=== PATIENT | male | born 1990 | race Caucasian/White ===

== ENCOUNTER 2022-06-07 10:27 | Emergency (ER) | payer BC, SELFPAY ==
--- NOTE | ~2022-06-07 | XR_ITS ---
EXAMINATION: XR SHOULDER, LEFT CLINICAL INFORMATION: Pain for 4 months COMPARISON: CXR from 05/17/2020 TECHNIQUE: AP external rotation, Grashey, scapular Y, and axillary views of the left shoulder. FINDINGS: Alignment is normal at the glenohumeral and acromioclavicular joints. The mild subarticular cystlike lucency and/or mild osteolysis of the distal clavicle is new compared to 05/17/2020. This could be sequela of prior trauma or repetitive microtrauma. There are no osteophytes projecting from the undersurface of the acromioclavicular joint. The humeral head is well-positioned over the glenoid. The glenohumeral joint space is maintained. There appears to be subarticular cystic lucency of the glenoid. No intra-articular osteochondral body. The visualized left upper lung is normal. 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 * Subchondral cystic change of the glenoid is suspected. This might be secondary to prior trauma to articular cartilage.
[2022-06-07 10:29] VITALS: BP 133/75; PULSE 60; RESP 18; TEMP 36.6; O2SAT 98; BMI 29.6
--- NOTE | 2022-06-07 12:34 | ED_ITS ---
HPI - Extremity Problem General Chief complaint: Extremity Injury, Upper Stated complaint: L shoulder pain Time Seen by Provider: 06/07/22 11:09 Source: patient Mode of arrival: ambulatory Limitations: no limitations History of Present Illness HPI Narrative: 32-year-old male presenting to the ER with complaints of atraumatic left shoulder pain worse when he is heavy lifting at worse. And worse over the past few days. Reports he has never had a fracture or injury to the left shoulder that he is aware of. He denies any dizziness, headaches, neck pain/ stiffness, paresthesias, chest pain or shortness of breath, jaw pain, dyspnea on exertion, orthopnea, palpitations, rashes, recent falls or trauma, extremity edema or any other symptoms complaints or concerns at this time. MD Complaint: joint pain Onset (ago): month(s) (4) Pain Consistency: constant Location: left and upper extremity Quality: aching Radiation: distal Relieving factors: immobilization Exacerbating factors: range of motion and palpation Associated symptoms: denies other symptoms Related Data Previous Rx's Medication Instructions Recorded cyclobenzaprine 10 mg tablet 10 mg PO Q8H #14 tabs 06/07/22 ibuprofen 800 mg tablet 800 mg PO Q8H PRN pain #14 tabs 06/07/22 oxycodone 5 mg tablet 5 mg PO Q6H PRN pain #14 tabs 06/07/22 Allergies Allergy/AdvReac Type Severity Reaction Status Date / Time No Known Allergies Allergy Unverified 06/18/20 18:15 [No Known Allergies*] Review of Systems Review of Systems: Constitutional : No Weight loss, No Fever, No Chills, No Night Sweats, No Fatigue, No Malaise ENT/Mouth : No Hearing loss, No Ear Pain, No Nasal Congestion, No Sinus Pain, No Hoarseness, No sore throat, No Rhinorrhea, No Swallowing Difficulty Eyes: No Eye Pain, No Swelling, No Redness, No Foreign Body, No Discharge, No Vision Changes Cardiovascular : No Chest Pain, No SOB, No Dyspnea on Exertion, No Orthopnea, No Edema, No Palpitations Respiratory : No Cough, No Sputum, No Wheezing, No Smoke Exposure, No Dyspnea Gastrointestinal : No Nausea, No Vomiting, No Diarrhea, No Constipation, No abdominal Pain, No Hematochezia, No Melena Genitourinary : no irregular bleeding, No Dysuria, No Urinary Frequency, No Hematuria, No Urinary Incontinence, No Urgency, No Flank Pain, No Urinary Flow Changes, No Hesitancy Musculoskeletal : + left shoulder joint pain, No Myalgias, No Joint Swelling Skin : No Skin Lesions, No rash Neuro : No Weakness, No Numbness, No Paresthesias, No Loss of Consciousness, No Dizziness, No Headache Psych : No Anxiety/Panic, No Depression, No SI/HI/AH/VH, No Social Issues, Heme/Lymph: No Bruising, No Bleeding,No Lymphadenopathy Endocrine : No Polyuria, No Polydipsia, No Temperature Intolerance Yes all other systems are reviewed and are negative [facility] Past Medical History Attestation statement: The following information was validated with the patient. Source: old records reviewed and nursing notes reviewed Social History Social History Advance Directives: No Advance Directives Information Provided: No Physical Exam Vital Signs: Vital Signs: Last Vital Signs Temp 98 F 06/07/22 10:29 Pulse 60 06/07/22 10:29 Resp 18 06/07/22 10:29 BP 133/75 06/07/22 10:29 Pulse Ox 98 06/07/22 10:29 O2 Del Method 06/07/22 10:29 BMI result Body Mass Index 29.6 vital signs have been reviewed as normal and appeared to be correct. Blood pressure normal Heart rate normal. Respiration rate normal. Temperature normal. Oxygen saturation normal. Appearance: Alert. Oriented X3. No acute distress. Head: Normal external exam. Normocephalic. Atraumatic. Eyes: PERRLA. EOMI. Conjunctiva and sclera normal. Eyelids normal. ENT: Pharynx normal. Uvula midline. Moist mucous membranes. Neck: Normal inspection. Neck supple. FROM. CVS: Normal heart rate and rhythm. Respiratory: No respiratory distress. Painless inspiration. Skin: Skin warm and dry. Normal skin color. Normal skin turgor. No rashes/lesions/lacerations noted. Extremities: Patient with tenderness palpation at the left distal clavicular/AC joint. He has full range of motion of the left shoulder/ arm no obvious ligamentous or tendon injury noted. Otherwise all other extremities exhibit normal range of motion nontender. No extremity edema noted. Neuro: Oriented X 3. No motor deficit. No sensory deficit. Reflexes normal. Normal steady gait. No focal neuro deficits noted. Vascular: + radial pulses/+ 2 distal pedal pulses/+2 dorsalis pedis b/l. Normal cap refill. No cyanosis noted to upper extremity nails and lower extremity toes nails. 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 Subchondral cystic change of the glenoid is suspected. This might be secondary to prior trauma to the articular cartilage. Although patient denies any sprain/ fall/ fractures ever in his life therefore discussed this case with Dr. Upton. We will DC home with symptomatic treatment instructions to follow-up with orthopedics in the next 2 weeks for further evaluation treatment. Patient understands agrees with this plan. MDM - Extremity (Nontraumatic) Medical Records Attestation: I reviewed the patient's medical records. Imaging Data Left shoulder x-ray: Attestation: I personally reviewed and interpreted this imaging study as follows: Radiologist's impression: FINDINGS: Alignment is normal at the glenohumeral and acromioclavicular joints. The mild subarticular cystlike lucency and/or mild osteolysis of the distal clavicle is new compared to 05/17/2020. This could be sequela of prior trauma or repetitive microtrauma. There are no osteophytes projecting from the undersurface of the acromioclavicular joint. The humeral head is well-positioned over the glenoid. The glenohumeral joint space is maintained. There appears to be subarticular cystic lucency of the glenoid. No intra-articular osteochondral body. The visualized left upper lung is normal. XR/XR shoulder LT min 2V IMPRESSION: *? 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 ? *? Subchondral cystic change of the glenoid is suspected. This might be secondary to prior trauma to articular cartilage. Discharge Plan Discharge Clinical Impression: Acute pain of left shoulder, Abnormal x-ray Patient Disposition: Home, Self-Care Instructions: Shoulder Pain (ED) Prescriptions: New ibuprofen 800 mg tablet 800 mg PO Q8H PRN (Reason: pain) Qty: 14 0RF oxycodone 5 mg tablet 5 mg PO Q6H PRN (Reason: pain) Qty: 14 0RF Rx Instructions: Partial Fill upon patient request. cyclobenzaprine 10 mg tablet 10 mg PO Q8H Qty: 14 0RF Referrals: Srinath De La Garza MD [Physician] - 2 weeks ( call today to make a follow-up appointment within the next 2 weeks for your abnormal x-ray of the left shoulder) Preet Haney MD [Primary Care Provider] - 2 days Stand Alone Forms: Work/School Release
== END 2022-06-07 12:52 | disposition home or self-care (01) ==
PROVIDERS: Emergency Provider Emergency Medicine; PCP Pediatrics
DX: M25.512 Pain in left shoulder (principal); R93.89 Abnormal findings on diagnostic imaging of other specified body structures
CPT/HCPCS: 73030; 99282; 99283

== ENCOUNTER → 2024-10-26 11:14 | Outpatient (BNVA) | payer OTHER, SELFPAY | PROVIDERS: PCP Pediatrics ==